=== PATIENT | female | born 1950 | race Caucasian/White ===

== ENCOUNTER 2020-06-19 18:41 | Emergency (ER) | payer MEDICARE ==
--- NOTE | 2020-06-19 20:23 | ERPHSYRPT ---
- History of Present Illness Time Seen by Provider: 06/19/20 19:10 Source: patient Exam Limitations: no limitations Patient Subjective Stated Complaint: Constipation Triage Nursing Assessment: Patient brought back to ED via EMS and transferred to bed per self. Patient A+O x3. Patient's skin pink ,warm and dry. Patient states she attempted to have a bowel movement and couldn't go. Patient became nervous and anxious due to her father has a hx of colon cancer with locked bowel. Patient anxious. abdomen soft and round with Bs X 4. Patient denies pain or discomfort. Patient denies N/V. Patient's last BM on 06/17/2020. Patient states when she was done wiping her rectum she noticed some blood. Physician History: Patient is a 70-year-old female presents to our ED for evaluation of constipation. Patient has no pain. Patient became concerned because she has not had a bowel movement in 2 days. Patient's father has a history of colon cancer patient became concerned that she may have colon cancer. Patient also became concerned because her blood pressure was elevated above normal and her heart rate was fast. Patient states she normally has normal blood pressure and vitals. Patient is otherwise asymptomatic. Patient states she has been eating a lot of cheesy foods over the past couple days. Patient with that this may be causing her constipation. Patient is otherwise asymptomatic. Timing/Duration: day(s) (2 days) Severity: moderate Modifying Factors: Improves With: nothing Associated Symptoms: denies symptoms Allergies/Adverse Reactions: Penicillins Allergy (Verified 06/19/20 18:57) Sulfa (Sulfonamide Antibiotics) Allergy (Verified 06/19/20 18:57) Home Medications: Ascorbic Acid [Vitamin C] 1 tab PO DAILY 06/19/20 [History] Atorvastatin Calcium 1 tab PO DAILY 06/19/20 [History] Calcium Carbonate/Vitamin D3 [Os-Guillermo 500-Vit D3 200 Caplet] 1 tab PO DAILY 06/19/20 [History] Vitamin E 400 Units [Vitamin E 400 UNIT SOFTGEL] 1 tab PO DAILY 06/19/20 [History] Hx Influenza Vaccination/Date Given: Yes Hx Pneumococcal Vaccination/Date Given: No Immunizations Up to Date: Yes Travel Risk - International Travel Have you traveled outside of the country in past 3 weeks: No - Coronavirus Screening Are you exhibiting any of the following symptoms?: No Close contact with a COVID-19 positive Pt in past 14-21 Days: No - Vaccine Status Have you recieved a Covid-19 vaccination: Yes [employer]: [employer] - Vaccination Dates Date of 2cond Vaccination (if applicable): 04/23/2020 - Review of Systems Constitutional: No Symptoms, No Fever, No Chills Eyes: No Symptoms Ears, Nose, & Throat: No Symptoms Respiratory: No Symptoms, No Cough, No Dyspnea Cardiac: No Symptoms, No Chest Pain, No Edema, No Syncope Abdominal/Gastrointestinal: No Symptoms, No Abdominal Pain, No Nausea, No Vomiting, No Diarrhea Genitourinary Symptoms: No Symptoms, No Dysuria Musculoskeletal: No Symptoms, No Back Pain, No Neck Pain Skin: No Symptoms, No Rash Neurological: No Symptoms, No Dizziness, No Focal Weakness, No Sensory Changes Psychological: No Symptoms Endocrine: No Symptoms Hematologic/Lymphatic: No Symptoms Immunological/Allergic: No Symptoms All Other Systems: Reviewed and Negative - Past Medical History Pertinent Past Medical History: Yes Neurological History: No Pertinent History ENT History: No Pertinent History Cardiac History: High Cholesterol Respiratory History: No Pertinent History Endocrine Medical History: No Pertinent History Musculoskeletal History: No Pertinent History GI Medical History: No Pertinent History History: No Pertinent History Psycho-Social History: No Pertinent History Female Reproductive Disorders: No Pertinent History - Past Surgical History Past Surgical History: No Neuro Surgical History: No Pertinent History Cardiac: No Pertinent History Respiratory: No Pertinent History Gastrointestinal: No Pertinent History Genitourinary: No Pertinent History Musculoskeletal: No Pertinent History Female Surgical History: No Pertinent History - Social History Smoking Status: Never smoker Exposure to second hand smoke: No Drug Use: none Patient Lives Alone: Yes - Female History Hx Now: No - Nursing Vital Signs Nursing Vital Signs: Initial Vital Signs Temperature 98.8 F 06/19/20 19:02 Pulse Rate 85 06/19/20 19:02 Respiratory Rate 18 06/19/20 19:02 Blood Pressure 161/81 06/19/20 19:02 O2 Sat by Pulse Oximetry 100 06/19/20 19:02 Pain Scale Pain Intensity 0 - Physical Exam General Appearance: no apparent distress, alert Eye Exam: PERRL/EOMI, eyes nml inspection Ears, Nose, Throat Exam: normal ENT inspection, TMs normal, pharynx normal, moist mucous membranes Neck Exam: normal inspection, non-tender, supple, full range of motion Respiratory Exam: normal breath sounds, lungs clear, No respiratory distress Cardiovascular Exam: regular rate/rhythm, normal heart sounds, normal peripheral pulses Gastrointestinal/Abdomen Exam: soft, normal bowel sounds, No tenderness, No mass Back Exam: normal inspection, normal range of motion, No CVA tenderness, No vertebral tenderness Extremity Exam: normal inspection, normal range of motion, pelvis stable Neurologic Exam: alert, oriented x 3, cooperative, normal mood/affect, nml cerebellar function, sensation nml, No motor deficits Skin Exam: normal color, warm, dry, No rash Lymphatic Exam: No adenopathy SpO2 Interpretation: normal SpO2: 100 O2 Delivery: Room Air - Course Nursing assessment & vital signs reviewed: Yes - Progress Progress: improved Progress Note: Patient reassessed. She feels well. Patient received an enema however has not had a bowel movement. Patient at this point feels that she does not need to have a bowel movement we are not can force a bowel movement here in our ED. Patient has not had a bowel movement in 2 days. This is considered normal. Patient otherwise asymptomatic. Vitals stable. Will discharge patient home. Patient agrees to follow-up with her primary care doctor within 48 hours for evaluation. 06/19/20 20:23 Portions of this note were created with voice recognition technology. There may be grammatical, spelling, punctuation or sound alike errors 06/19/20 20:26 Counseled pt/family regarding: diagnosis, need for follow-up - Departure Departure Disposition: Home Clinical Impression: Encounter for medical screening examination, Anxiety Condition: Stable Critical Care Time: No Referrals: GOPAL YANCEY MD [Primary Care Provider] - Additional Instructions: Discharge/Care Plan IMELDA MAYORGA was seen on 06/19/20 in the Emergency Room. The patient was counseled regarding Diagnosis,Lab results, Imaging studies, need for follow up and when to return to the Emergency Room. Prescriptions given: Discharge Note I have spoken with the patient and/or caregivers. I have explained the patient's condition, diagnosis and treatment plan based on the information available to me at this time. I have answered the patient's and/or caregiver's questions and addressed any concerns. The patient and/or caregivers have as good understanding of the patient's diagnosis, condition and treatment plan as can be expected at this point. The vital signs have been stable. The patient's condition is stable and appropriate for discharge from the emergency department. The patient will pursue further outpatient evaluation with the primary care physician or other designated or consulting physician as outlined in the discharge instructions. The patient and/or caregivers are agreeable to this plan of care and follow-up instructions have been explained in detail. The patient and/or caregivers have received these instruction. The patient/and or caregivers are aware that any significant change in condition or worsening of symptoms should prompt an immediate return to this or the closest emergency department or call 911.
[2020-06-19 20:39] VITALS: PULSE 87
[2020-06-19 20:40] VITALS: BP 133/65; O2SAT 98
== END 2020-06-19 20:40 | disposition home or self-care (01) ==
LOC: ED 18:41
DX: Z00.8 Encounter for other general examination (principal); K59.00 Constipation, unspecified; F41.9 Anxiety disorder, unspecified; Z80.0 Family history of malignant neoplasm of digestive organs; Z79.899 Other long term (current) drug therapy
CPT/HCPCS: 99283